=== PATIENT | female | born 1950 | race Caucasian/White ===

== ENCOUNTER 2017-09-03 08:42 | Inpatient (IN) | payer MEDICAID, MEDICARE ==
[2017-09-03] MEDS ORDERED: MAGNESIUM SULFATE/D5W 2 GM/200 ML RTUPB IV ONE (08:58)
[2017-09-03] MEDS ORDERED: IPRATROPIUM/ALBUTEROL 0.5-2.5 MG/3 ML AMPUL NEB ONE ×2 (08:58→09:06)
--- NOTE | 2017-09-03 08:58 | ER Document Report ---
ED Respiratory Problem - General Chief Complaint: Shortness Of Breath Stated Complaint: DIFFICULTY BREATHING Time Seen by Provider: 09/03/17 08:51 Notes: The patient is a 67-year-old female, past medical history asthma, COPD, current smoker, presents with 1 day of increasing shortness of breath and cough. Patient said that multiple family members had the flu last week and she had similar symptoms, so she thought she had the flu also. When she called EMS today, she was found to be 73% on room air. She does not wear oxygen at home. Patient was given 125 mg Solu-Medrol and DuoNeb with improvement of her respiratory status. She arrived on 4 L O2 and satting 92%. Patient denies chest pain, leg swelling, nausea, vomiting, back pain, rash, fevers, numbness or tingling. - Related Data Allergies/Adverse Reactions: No Known Allergies Allergy (Unverified 09/03/17 10:07) Past Medical History - General Information source: Patient - Social History Smoking Status: Current Every Day Smoker Family History: Reviewed & Not Pertinent Review of Systems - Review of Systems Notes: REVIEW OF SYSTEMS: CONSTITUTIONAL: -fevers, -chills EENT: -eye pain, -difficulty swallowing, -nasal congestion CARDIOVASCULAR: -chest pain, -syncope. RESPIRATORY: +cough, +SOB GASTROINTESTINAL: -abdominal pain, -nausea, -vomiting, -diarrhea GENITOURINARY: -dysuria, -hematuria MUSCULOSKELETAL: -back pain, -neck pain SKIN: -rash or skin lesions. HEMATOLOGIC: -easy bruising or bleeding. LYMPHATIC: -swollen, enlarged glands. NEUROLOGICAL: -altered mental status or loss of consciousness, -headache, - neurologic symptoms PSYCHIATRIC: -anxiety, -depression. ALL OTHER SYSTEMS REVIEWED AND NEGATIVE. Physical Exam - Vital signs Vitals: Resp 22 H 09/03/17 08:47 - Notes Notes: PHYSICAL EXAMINATION: GENERAL: Well-appearing, well-nourished and in no acute distress. HEAD: Atraumatic, normocephalic. EYES: Pupils equal round and reactive to light, extraocular movements intact, sclera anicteric, conjunctiva are normal. ENT: nares patent, oropharynx clear without exudates. Moist mucous membranes. NECK: Normal range of motion, supple without lymphadenopathy LUNGS: Mildly tachypneic. Speaking in full sentences. Mild end-expiratory wheezing. HEART: Regular rate and rhythm without murmurs ABDOMEN: Soft, nontender, normoactive bowel sounds. No guarding, no rebound. No masses appreciated. EXTREMITIES: Normal range of motion, no pitting or edema. No cyanosis. NEUROLOGICAL: Cranial nerves grossly intact. Normal speech. Normal sensory and motor exams. PSYCH: Normal mood, normal affect. SKIN: Warm, Dry, normal turgor, no rashes or lesions noted. Course - Re-evaluation Re-evalutation: Patient arrives mildly tachypneic, hypoxic to 73% on room air and 80% on 4 L nasal cannula with diffuse wheezing. She already received Solu-Medrol and a Duoneb by EMS prior to arrival. Patient provided 2 more duonebs and magnesium in the ER with improvement of her wheezing and respiratory status. She was placed on BiPAP with improvement of her oxygenation. Patient was attempted to be weaned off BiPAP, but she became hypoxic again. There are no signs of bacterial infection at this time. Treated her for viral bronchitis with steroids and Duoenbs. Her elevated lactate is most likely from her increased work of breathing on arrival. Her PMD is Dr. Hira Villalba. 09/03/17 12:[address] Solano and she has accepted patient as Inpatient to Tele. - Vital Signs Vital signs: Temp Pulse Resp BP Pulse Ox 98.3 F 25 H 118/53 L 93 09/03/17 09:01 09/03/17 11:21 09/03/17 09:06 09/03/17 11:21 - Laboratory Result Diagrams: 09/03/17 08:56 09/03/17 08:56 Laboratory results interpreted by me: 09/03/17 09/03/17 09/03/17 08:56 08:56 08:56 WBC 11.8 H RDW 14.6 H Carbon Dioxide 31 H Creatinine 0.49 L Glucose 127 H Lactic Acid 2.9 H - Diagnostic Test Radiology reviewed: Image reviewed, Reports reviewed Radiology results interpreted by me: CXR: NAD - EKG Interpretation by Me EKG shows normal: Sinus rhythm, [place], Intervals, QRS Complexes, ST-T Waves Rate: Normal When compared to previous EKG there are: Previous EKG unavailable Discharge - Discharge Clinical Impression: Respiratory failure with hypoxia Qualifiers: Chronicity: acute Qualified Code(s): J96.01 - Acute respiratory failure with hypoxia Condition: Stable Disposition: ADMITTED INPATIENT Admitting Provider: Hospitalist Earl Solano Unit Admitted: Telemetry Referrals: HIRA VILLALBA MD [Primary Care Provider] - Follow up as needed
[2017-09-03 09:11] LABS: ABSOLUTE BASOPHILS # (AUTO) 0.1 10^3/uL (0.0-0.2); ABSOLUTE LYMPHOCYTES (AUTO) 4.6 10^3/uL (0.5-4.7); ABSOLUTE NEUT (AUTO) 6.1 10^3/uL (1.7-8.2); BASOPHILS % (AUTO) 0.6 % (0-2); EOSINOPHILS % (AUTO) 0.1 % (0-6); HEMATOCRIT 45.4 % (36.0-47.0); HEMOGLOBIN 15.1 g/dL (12.0-15.5); LYMPHOCYTES % (AUTO) 39.2 % (13-45); MEAN CORPUSCULAR HGB CONC 33.2 g/dL (32.0-36.0); MEAN CORPUSCULAR VOLUME 96 fl (80-97); MONOCYTES % (AUTO) 8.2 % (3-13); PLATELET COUNT 200 10^3/uL (150-450); RED BLOOD COUNT 4.71 10^6/uL (3.72-5.28); RED CELL DISTRIBUTION WIDTH 14.6 % (11.5-14.0); SEGMENTED NEUTROPHILS % (AUTO) 51.9 % (42-78); TOTAL CELLS COUNTED % (AUTO) 100 %; WHITE BLOOD COUNT 11.8 10^3/uL (4.0-10.5)
[2017-09-03] MEDS: MAGNESIUM SULFATE/D5W 1 GM/100 ML RTUPB IV SCH ×2 (09:13→13:21)
[2017-09-03 09:25] LABS: VENOUS BLOOD BASE EXCESS 3.4 mmol/L; VENOUS BLOOD HCO3 30.7 mmol/L (20-32); VENOUS BLOOD PCO2 57.9 mmHg (35-63); VENOUS BLOOD PH 7.34 (7.30-7.42)
[2017-09-03 09:32] LABS: ALANINE AMINOTRANSFERASE 38 U/L (9-52); ALBUMIN 4.2 g/dL (3.5-5.0); ALKALINE PHOSPHATASE 91 U/L (38-126); ANION GAP 13 (5-19); ASPARTATE AMINO TRANSFERASE 34 U/L (14-36); BILIRUBIN,DIRECT 0.4 mg/dL (0.0-0.4); BILIRUBIN,TOTAL 0.5 mg/dL (0.2-1.3); BLOOD UREA NITROGEN 9 mg/dL (7-20); CALCIUM 9.1 mg/dL (8.4-10.2); CARBON DIOXIDE 31 mmol/L (22-30); CHLORIDE 101 mmol/L (98-107); CREATINE KINASE 44 U/L (30-135); GLUCOSE 127 mg/dL (75-110); POTASSIUM 3.6 mmol/L (3.6-5.0); SODIUM 144.5 mmol/L (137-145); TOTAL PROTEIN 7.8 g/dL (6.3-8.2)
[2017-09-03 09:44] LABS: NT PRO BNP 158 pg/mL (5-900)
[2017-09-03 09:45] LABS: TROPONIN I < 0.012 ng/mL
--- NOTE | 2017-09-03 09:48 | RADIOLOGY REPORT (SQ) ---
EXAM DESCRIPTION: CHEST SINGLE VIEW COMPLETED DATE/TIME: 09/03/2017 9:20 am REASON FOR STUDY: hypoxia COMPARISON: None. EXAM PARAMETERS: NUMBER OF VIEWS: One view. TECHNIQUE: Single frontal radiographic view of the chest acquired. RADIATION DOSE: NA LIMITATIONS: None. FINDINGS: LUNGS AND PLEURA: No opacities, masses or pneumothorax. No pleural effusion. MEDIASTINUM AND HILAR STRUCTURES: No masses. Contour normal. HEART AND VASCULAR STRUCTURES: Heart normal in size. Normal vasculature. BONES: No acute findings. HARDWARE: None in the chest. OTHER: No other significant finding. IMPRESSION: NO ACUTE RADIOGRAPHIC FINDING IN THE CHEST. TECHNICAL DOCUMENTATION: JOB ID: [id number] [employer]- All Rights Reserved
[2017-09-03 11:16] LABS: A TYPE INFLUENZA AG NEGATIVE (NEGATIVE); B INFLUENZA AG NEGATIVE (NEGATIVE)
[2017-09-03] MEDS ORDERED: ACETAMINOPHEN 325 MG TABLET PO PRN (12:31)
[2017-09-03] MEDS ORDERED: ONDANSETRON HCL INJ/PF 4 MG/2 ML SDV IV PRN (12:31)
[2017-09-03] MEDS ORDERED: DEXTROSE 50%-WATER 25 GM/50 ML DISP.SYRIN IV PRN ×2 (13:15)
[2017-09-03] MEDS ORDERED: DEXTROSE 40% GEL 15 GM TUBE PO PRN ×2 (13:15)
[2017-09-03] MEDS ORDERED: GLUCAGON,HUMAN RECOMB 1 MG INJ IM PRN (13:15)
[2017-09-03] MEDS: AZITHROMYCIN 250 MG TABLET PO SCH (13:59)
--- NOTE | 2017-09-03 13:59 | PDOC H&P ---
History of Present Illness Admission Date/PCP: September 03, 2017 SHABBIR VILLALBA MD Patient complains of: Shortness of breath worsening over the course of 5 days History of Present Illness: AFSHIN MCCURDY is a 67 year old female presents accompanied by multiple family members and states that she has been getting progressively short of breath over the span of 5 days. Patient has been having cough which is nonproductive. Patient also complains of having some chills. Shortness of breath was so severe that she had to call EMS. Upon arrival of EMS pulse ox was 73%. On arrival patient was still hypoxemic and required placement on BiPAP. She was medicated with IV Solu-Medrol and DuoNeb. Patient continues smoking 1 pack of cigarettes per day. Her father of lung cancer. In addition to her smoking there are some other family members that smoke as well.By the time of examining patient she reported that she was some better but was somewhat afraid of using the BiPAP. Our service was contacted by ED physician and prompted to admit for further management Past Medical History Cardiac Medical History: Reports: Hypertension Pulmonary Medical History: Reports: Asthma, Chronic Obstructive Pulmonary Disease (COPD) EENT Medical History: Reports: None Neurological Medical History: Reports: None Endocrine Medical History: Reports: Diabetes Mellitus Type 2 Renal/ Medical History: Reports: None Malignancy Medical History: Reports: None GI Medical History: Reports: Gastroesophageal Reflux Disease Musculoskeltal Medical History: Reports: Arthritis, Fibromyalgia Skin Medical History: Reports: None Psychiatric Medical History: Reports: Tobacco Dependency Traumatic Medical History: Reports: None Hematology: Reports: None Infectious Medical History: Reports: None Past Surgical History Past Surgical History: Reports: None Social History Smoking Status: Current Every Day Smoker Cigarettes Packs Per Day: 1 Frequency of Alcohol Use: None Hx Recreational Drug Use: No Drugs: None Hx Prescription Drug Abuse: No Family History Family History: DM, Hypertension, Malignancy Parental Family History Reviewed: Yes Children Family History Reviewed: Yes Sibling(s) Family History Reviewed.: Yes Medication/Allergy Home Medications: Albuterol Sulfate [Ventolin HFA MDI 18 GM] 2 puff IH Q4HP PRN 09/03/17 Alendronate Sodium [Fosamax 70 mg Tablet] 70 mg PO PINEDA@1000 09/03/17 Aspirin [Aspirin EC] 81 mg PO DAILY 09/03/17 Celecoxib [Celebrex 200 mg Capsule] 200 mg PO DAILY 09/03/17 Duloxetine HCl [Cymbalta] 30 mg PO DAILY 09/03/17 Esomeprazole Mag Trihydrate [Nexium] 40 mg PO DAILY 09/03/17 Furosemide [Lasix 40 mg Tablet] 40 mg PO QAM 09/03/17 Hydrocodone/Acetaminophen [Hydrocodon-Acetaminophen 5-325] 1 tab PO Q8HP PRN Krill/Om-3/Dha/Epa/Phospho/Ast [Megared [place]-3 Krill Oil Sfgl] 1 cap PO DAILY 09/03/17 Losartan Potassium [Cozaar 100 mg Tablet] 100 mg PO DAILY 09/03/17 Multivit-Min/Iron/Folic/Lutein [Centrum Silver Women Tablet] 1 tab PO DAILY Rosuvastatin Calcium [Crestor 10 mg Tablet] 10 mg PO QHS 09/03/17 Sitagliptin Phosphate [Januvia] 100 mg PO DAILY 09/03/17 Tolterodine Tartrate [Detrol La] 4 mg PO DAILY 09/03/17 Verapamil HCl [Verapamil ER] 240 mg PO DAILY 09/03/17 Allergies/Adverse Reactions: No Known Allergies Allergy (Unverified 09/03/17 10:07) Review of Systems Constitutional: PRESENT: chills Eyes: ABSENT: visual disturbances Ears: ABSENT: hearing changes Nose, Mouth, and Throat: ABSENT: headache(s), mouth pain, sore throat Cardiovascular: ABSENT: chest pain, edema, palpitations Respiratory: PRESENT: cough, dyspnea Gastrointestinal: ABSENT: abdominal pain, diarrhea, nausea, vomiting Genitourinary: ABSENT: dysuria, hematuria Musculoskeletal: PRESENT: back pain. ABSENT: deformity, joint swelling Integumentary: PRESENT: rash Neurological: ABSENT: dizziness, tingling, weakness Endocrine: ABSENT: heat intolerance, polydipsia, polyphagia Hematologic/Lymphatic: ABSENT: lymphadenopathy Allergic/Immunologic: ABSENT: seasonal rhinorrhea Physical Exam Vital Signs: Temp Pulse Resp BP Pulse Ox 98.3 F 25 H 118/53 L 93 09/03/17 09:01 09/03/17 11:21 09/03/17 09:06 09/03/17 11:21 General appearance: PRESENT: cooperative, mild distress, obese Head exam: PRESENT: atraumatic, normocephalic Eye exam: PRESENT: EOMI, PERRLA Ear exam: PRESENT: normal external ear exam Mouth exam: PRESENT: moist, neck supple Neck exam: PRESENT: full ROM. ABSENT: JVD, lymphadenopathy, tenderness Respiratory exam: PRESENT: decreased breath sounds, tachypnea. ABSENT: crackles , wheezes Cardiovascular exam: PRESENT: RRR. ABSENT: diastolic murmur, systolic murmur Vascular exam: PRESENT: normal capillary refill GI/Abdominal exam: PRESENT: normal bowel sounds, soft. ABSENT: guarding, tenderness Rectal exam: PRESENT: deferred Extremities exam: PRESENT: full ROM. ABSENT: joint swelling, pedal edema Musculoskeletal exam: PRESENT: ambulatory Neurological exam: PRESENT: alert, awake, oriented to person, oriented to place , oriented to time, CN II-XII grossly intact Psychiatric exam: PRESENT: appropriate affect, normal mood Skin exam: PRESENT: intact, normal color Results Laboratory Results: 09/03/17 08:56 09/03/17 08:56 09/03/17 09/03/17 09/03/17 08:56 08:56 08:56 WBC 11.8 H RBC 4.71 Hgb 15.1 Hct 45.4 MCV 96 MCH 32.0 MCHC 33.2 RDW 14.6 H Plt Count 200 Seg Neutrophils % 51.9 Lymphocytes % 39.2 Monocytes % 8.2 Eosinophils % 0.1 Basophils % 0.6 Absolute Neutrophils 6.1 Absolute Lymphocytes 4.6 Absolute Monocytes 1.0 Absolute Eosinophils 0.0 Absolute Basophils 0.1 VBG pH VBG pCO2 VBG HCO3 VBG Base Excess Sodium 144.5 Potassium 3.6 Chloride 101 Carbon Dioxide 31 H Anion Gap 13 BUN 9 Creatinine 0.49 L Est GFR ( Amer) > 60 Est GFR (Non-Af Amer) > 60 Glucose 127 H Lactic Acid 2.9 H Calcium 9.1 Total Bilirubin 0.5 AST 34 ALT 38 Alkaline Phosphatase 91 Total Protein 7.8 Albumin 4.2 09/03/17 08:56 WBC RBC Hgb Hct MCV MCH MCHC RDW Plt Count Seg Neutrophils % Lymphocytes % Monocytes % Eosinophils % Basophils % Absolute Neutrophils Absolute Lymphocytes Absolute Monocytes Absolute Eosinophils Absolute Basophils VBG pH 7.34 VBG pCO2 57.9 VBG HCO3 30.7 VBG Base Excess 3.4 Sodium Potassium Chloride Carbon Dioxide Anion Gap BUN Creatinine Est GFR ( Amer) Est GFR (Non-Af Amer) Glucose Lactic Acid Calcium Total Bilirubin AST ALT Alkaline Phosphatase Total Protein Albumin 09/03/17 09/03/17 08:56 08:56 Creatine Kinase 44 Troponin I < 0.012 NT-Pro-B Natriuret Pep 158 Impressions: Chest X-Ray 09/03/17 08:51 IMPRESSION: NO ACUTE RADIOGRAPHIC FINDING IN THE CHEST. Assessment & Plan - Diagnosis (1) Acute and chronic respiratory failure Qualifiers: Respiratory failure complication: hypoxia and hypercapnia Qualified Code(s) : J96.21 - Acute and chronic respiratory failure with hypoxia; J96.22 - Acute and chronic respiratory failure with hypercapnia; J96.22 - Acute and chronic respiratory failure with hypercapnia; J96.22 - Acute and chronic respiratory failure with hypercapnia Is this a current diagnosis for this admission?: Yes Plan: Continue BiPAP. Will add low-dose Xanax as needed. Patient and family had been made aware that these medication can depress respiration therefore will have to use it judiciously (2) COPD exacerbation Is this a current diagnosis for this admission?: Yes Plan: To be placed on DuoNeb's, Mucinex, IV steroid and Zithromax (3) Lactic acidosis Is this a current diagnosis for this admission?: Yes Plan: May relate to respiratory failure and hypoperfusion and patient does not feel criteria for sepsis (4) Tobacco abuse Is this a current diagnosis for this admission?: Yes Plan: Patient has been advised to quit since at risk for myocardial infarction, stroke , circulatory problems and lung cancer. Will place patient on nicotine patch (5) Chronic pain syndrome Is this a current diagnosis for this admission?: Yes Plan: Patient suffers from arthritis and fibromyalgia. She is on long-standing hydrocodone. Will continue outpatient pain management regimen (6) Opioid dependence in controlled environment Is this a current diagnosis for this admission?: Yes Plan: Will continue with outpatient regimen (7) Diabetes Qualifiers: Diabetes mellitus type: type 2 Diabetes mellitus complication status: with unspecified complications Diabetes mellitus ferry terminal agent insulin use: without ferry terminal agent use Qualified Code(s): E11.8 - Type 2 diabetes mellitus with unspecified complications Is this a current diagnosis for this admission?: Yes Plan: For now to place patient on Humalog sliding scale and bedside glucose before meals and at bedtime - Time Time Spent: 50 to 70 Minutes Smoking Cessation Education: 3 to 10 minutes Medications reviewed and adjusted accordingly: Yes Anticipated discharge: Home Within: within 72 hours - Inpatient Certification Based on my medical assessment, after consideration of the patient's comorbidities, presenting symptoms, or acuity I expect that the services needed warrant INPATIENT care.: Yes I certify that my determination is in accordance with my understanding of Medicare's requirements for reasonable and necessary INPATIENT services [42 CFR 412.3e].: Yes Medical Necessity: Need Close Monitoring Due to Risk of Patient Decompensation, Need For Continuous Telemetry Monitoring, Need for Nebulizer Therapy and Monitoring of Response
[2017-09-03] MEDS: NICOTINE 21 MG/24 HR PATCH.TD24 TD SCH (14:00)
[2017-09-03] MEDS ORDERED: GUAIFENESIN 600 MG TABLET.SA PO ONE (14:00)
[2017-09-03] MEDS: IPRATROPIUM/ALBUTEROL 0.5-2.5 MG/3 ML AMPUL NEB SCH ×2 (14:02→20:44)
[2017-09-03] MEDS: INSULIN LISPRO 100 UNIT/ML 3 ML VIAL SUBCUT PRN (17:18)
--- NOTE | 2017-09-03 17:18 | EKG REPORT ---
SEVERITY:- NORMAL ECG - SINUS RHYTHM : Confirmed by: Francie Sandhu 03-Sep-2017 17:17:30
[2017-09-03] MEDS: METHYLPREDNISOLONE INJ 40 MG/1 ML SDV IV SCH (18:47)
[2017-09-03] MEDS: ATORVASTATIN CALCIUM 20 MG TABLET PO SCH (23:29)
[2017-09-03] MEDS: GUAIFENESIN 600 MG TABLET.SA PO SCH (23:29)
[2017-09-03] MEDS: TOLTERODINE TARTRATE 1 MG TABLET PO SCH (23:30)
[2017-09-03] MEDS: OXYCODONE-ACETAMINOPHEN 5-325 MG TABLET PO PRN (23:31)
[2017-09-03] MEDS: ZOLPIDEM TARTRATE 5 MG TABLET PO PRN (23:32)
[2017-09-04] MEDS: ALPRAZOLAM 0.25 MG TABLET PO PRN ×2 (02:14→21:48)
[2017-09-04] MEDS: METHYLPREDNISOLONE INJ 40 MG/1 ML SDV IV SCH ×3 (02:14→17:35)
[2017-09-04 05:35] LABS: ANION GAP 9 (5-19); BLOOD UREA NITROGEN 10 mg/dL (7-20); CALCIUM 9.1 mg/dL (8.4-10.2); CARBON DIOXIDE 32 mmol/L (22-30); CHLORIDE 104 mmol/L (98-107); GLUCOSE 149 mg/dL (75-110); MAGNESIUM 2.3 mg/dL (1.6-2.3); POTASSIUM 3.9 mmol/L (3.6-5.0); SODIUM 145.3 mmol/L (137-145)
[2017-09-04 05:48] LABS: ABSOLUTE LYMPHOCYTES (AUTO) 1.4 10^3/uL (0.5-4.7); ABSOLUTE MONOCYTES (AUTO) 0.8 10^3/uL (0.1-1.4); ABSOLUTE NEUT (AUTO) 4.8 10^3/uL (1.7-8.2); BASOPHILS % (AUTO) 0.2 % (0-2); HEMATOCRIT 42.1 % (36.0-47.0); HEMOGLOBIN 14.2 g/dL (12.0-15.5); LYMPHOCYTES % (AUTO) 20.3 % (13-45); MEAN CORPUSCULAR HEMOGLOBIN 32.2 pg (27.0-33.4); MEAN CORPUSCULAR HGB CONC 33.8 g/dL (32.0-36.0); MEAN CORPUSCULAR VOLUME 95 fl (80-97); PLATELET COUNT 200 10^3/uL (150-450); RED BLOOD COUNT 4.42 10^6/uL (3.72-5.28); RED CELL DISTRIBUTION WIDTH 14.7 % (11.5-14.0); SEGMENTED NEUTROPHILS % (AUTO) 68.5 % (42-78); TOTAL CELLS COUNTED % (AUTO) 100 %
[2017-09-04] MEDS: LANSOPRAZOLE 30 MG TAB.RAP.DR PO SCH (05:58)
[2017-09-04] MEDS: OXYCODONE-ACETAMINOPHEN 5-325 MG TABLET PO PRN ×2 (05:59→21:48)
[2017-09-04] MEDS: IPRATROPIUM/ALBUTEROL 0.5-2.5 MG/3 ML AMPUL NEB SCH ×3 (07:51→20:55)
[2017-09-04] MEDS ORDERED: (PENDING PHARMACY ID) (Esomeprazole Mag Trihydrate [Nexium] 40 MG) PO SCH (10:00)
[2017-09-04] MEDS: MULTIVITAMIN TABLET PO SCH (10:02)
[2017-09-04] MEDS: DULOXETINE HCL 30 MG CAPSULE.DR PO SCH (10:02)
[2017-09-04] MEDS: FUROSEMIDE 40 MG TABLET PO SCH (10:02)
[2017-09-04] MEDS: GUAIFENESIN 600 MG TABLET.SA PO SCH ×2 (10:03→21:48)
[2017-09-04] MEDS: VERAPAMIL HCL 240 MG TABLET.SA PO SCH (10:03)
[2017-09-04] MEDS: TOLTERODINE TARTRATE 1 MG TABLET PO SCH ×2 (10:04→21:48)
[2017-09-04] MEDS: LOSARTAN POTASSIUM 50 MG TABLET PO SCH (10:04)
[2017-09-04] MEDS: ASPIRIN 81 MG TABLET, ENT COATED PO SCH (10:05)
[2017-09-04] MEDS: ENOXAPARIN SODIUM INJ 40 MG/0.4 ML DISP.SYRIN SUBCUT SCH (10:06)
[2017-09-04] MEDS: DOCUSATE SODIUM 100 MG CAPSULE PO SCH (10:16)
[2017-09-04] MEDS: INSULIN LISPRO 100 UNIT/ML 3 ML VIAL SUBCUT PRN (12:25)
[2017-09-04] MEDS: AZITHROMYCIN 250 MG TABLET PO SCH (13:54)
[2017-09-04] MEDS: NICOTINE 21 MG/24 HR PATCH.TD24 TD SCH (13:55)
--- NOTE | 2017-09-04 15:10 | PDOC PROGRESS REPORT ---
Subjective Progress Note for:: 09/04/17 Subjective:: Patient refers that is some better. She started to cough phlegm Review of systems All organ systems evaluated and negative except as in subjective All laboratories and significant diagnostics have been reviewed Reason For Visit: ACUTE ON CHRONIC RESPIRATORY FAILURE,AECOPD Physical Exam Vital Signs: Temp Pulse Resp BP Pulse Ox 98.7 F 93 20 142/74 H 93 09/03/17 23:00 09/04/17 02:00 09/03/17 23:00 09/03/17 23:00 09/03/17 23:00 Intake & Output 09/03/17 09/04/17 09/05/17 06:59 06:59 06:59 Intake Total 100 Balance 100 Weight 94.347 kg General appearance: PRESENT: mild distress, obese Head exam: PRESENT: atraumatic, normocephalic Eye exam: PRESENT: EOMI, nystagmus, PERRLA Ear exam: PRESENT: normal external ear exam Mouth exam: PRESENT: moist, neck supple Neck exam: PRESENT: full ROM. ABSENT: JVD, tenderness Respiratory exam: PRESENT: crackles, decreased breath sounds, wheezes Cardiovascular exam: PRESENT: RRR. ABSENT: diastolic murmur, systolic murmur Vascular exam: PRESENT: normal capillary refill GI/Abdominal exam: PRESENT: normal bowel sounds, soft. ABSENT: tenderness Extremities exam: PRESENT: full ROM. ABSENT: joint swelling, pedal edema Neurological exam: PRESENT: alert, awake, oriented to person, oriented to place , oriented to time Psychiatric exam: PRESENT: appropriate affect, normal mood Skin exam: PRESENT: intact, normal color Results Laboratory Results: 09/04/17 04:15 09/04/17 04:15 09/03/17 09/04/17 09/04/17 13:22 04:15 04:15 WBC 7.0 RBC 4.42 Hgb 14.2 Hct 42.1 MCV 95 MCH 32.2 MCHC 33.8 RDW 14.7 H Plt Count 200 Seg Neutrophils % 68.5 Lymphocytes % 20.3 Monocytes % 11.0 Eosinophils % 0.0 Basophils % 0.2 Absolute Neutrophils 4.8 Absolute Lymphocytes 1.4 Absolute Monocytes 0.8 Absolute Eosinophils 0.0 Absolute Basophils 0.0 Sodium 145.3 H Potassium 3.9 Chloride 104 Carbon Dioxide 32 H Anion Gap 9 BUN 10 Creatinine 0.46 L Est GFR ( Amer) > 60 Est GFR (Non-Af Amer) > 60 Glucose 149 H Lactic Acid 1.9 Calcium 9.1 Magnesium 2.3 09/03/17 09/03/17 13:22 18:56 Troponin I < 0.012 < 0.012 Impressions: Chest X-Ray 09/03/17 08:51 IMPRESSION: NO ACUTE RADIOGRAPHIC FINDING IN THE CHEST. Assessment & Plan - Diagnosis (1) Acute and chronic respiratory failure Qualifiers: Respiratory failure complication: hypoxia and hypercapnia Qualified Code(s) : J96.21 - Acute and chronic respiratory failure with hypoxia; J96.22 - Acute and chronic respiratory failure with hypercapnia; J96.22 - Acute and chronic respiratory failure with hypercapnia; J96.22 - Acute and chronic respiratory failure with hypercapnia Is this a current diagnosis for this admission?: Yes Plan: Continue BiPAP prn and oxygen supplementation (2) COPD exacerbation Is this a current diagnosis for this admission?: Yes Plan: Cotninue DuoNeb's, Mucinex, IV steroid, Zithromax and add mucomyst (3) Lactic acidosis Is this a current diagnosis for this admission?: Yes Plan: May relate to respiratory failure and hypoperfusion and patient does not feel criteria for sepsis (4) Tobacco abuse Is this a current diagnosis for this admission?: Yes Plan: Patient has been advised to quit since at risk for myocardial infarction, stroke , circulatory problems and lung cancer. Continue nicotine patch (5) Chronic pain syndrome Is this a current diagnosis for this admission?: Yes Plan: Patient suffers from arthritis and fibromyalgia. She is on long-standing hydrocodone. Will continue outpatient pain management regimen (6) Opioid dependence in controlled environment Is this a current diagnosis for this admission?: Yes Plan: Will continue with outpatient regimen (7) Diabetes Qualifiers: Diabetes mellitus type: type 2 Diabetes mellitus complication status: with unspecified complications Diabetes mellitus group home insulin use: without terminal supervisor use Qualified Code(s): E11.8 - Type 2 diabetes mellitus with unspecified complications Is this a current diagnosis for this admission?: Yes Plan: Continue Humalog sliding scale and bedside glucose before meals and at bedtime (8) HTN (hypertension) Qualifiers: Hypertension type: essential hypertension Qualified Code(s): I10 - Essential (primary) hypertension Is this a current diagnosis for this admission?: Yes Plan: Continue outpatient regimen - Time Time Spent with patient: 15-24 minutes Medications reviewed and adjusted accordingly: Yes Anticipated discharge: Home Within: within 72 hours - Inpatient Certification Based on my medical assessment, after consideration of the patient's comorbidities, presenting symptoms, or acuity I expect that the services needed warrant INPATIENT care.: Yes I certify that my determination is in accordance with my understanding of Medicare's requirements for reasonable and necessary INPATIENT services [42 CFR 412.3e].: Yes Medical Necessity: Need Close Monitoring Due to Risk of Patient Decompensation, Need for Nebulizer Therapy and Monitoring of Response, Risk of Complication if Not Cared For in Hospital
[2017-09-04] MEDS: ACETYLCYSTEINE 10% NEB 400 MG/4 ML VIAL NEB SCH (21:16)
[2017-09-04] MEDS: ATORVASTATIN CALCIUM 20 MG TABLET PO SCH (21:49)
[2017-09-05] MEDS: ALBUTEROL SULFATE 0.083% NEB 2.5 MG/3 ML AMPUL NEB PRN (02:05)
[2017-09-05] MEDS: ACETYLCYSTEINE 10% NEB 400 MG/4 ML VIAL NEB SCH ×4 (02:05→19:52)
[2017-09-05] MEDS: ZOLPIDEM TARTRATE 5 MG TABLET PO PRN ×2 (02:22→22:57)
[2017-09-05] MEDS: METHYLPREDNISOLONE INJ 40 MG/1 ML SDV IV SCH ×2 (02:22→18:19)
[2017-09-05] MEDS: OXYCODONE-ACETAMINOPHEN 5-325 MG TABLET PO PRN ×2 (03:28→20:36)
[2017-09-05] MEDS: ALPRAZOLAM 0.25 MG TABLET PO PRN ×2 (06:41→20:35)
[2017-09-05] MEDS: LANSOPRAZOLE 30 MG TAB.RAP.DR PO SCH (06:41)
[2017-09-05] MEDS: IPRATROPIUM/ALBUTEROL 0.5-2.5 MG/3 ML AMPUL NEB SCH ×3 (07:51→19:52)
[2017-09-05] MEDS: VERAPAMIL HCL 240 MG TABLET.SA PO SCH (11:16)
[2017-09-05] MEDS: DULOXETINE HCL 30 MG CAPSULE.DR PO SCH (11:16)
[2017-09-05] MEDS: ASPIRIN 81 MG TABLET, ENT COATED PO SCH (11:16)
[2017-09-05] MEDS: TOLTERODINE TARTRATE 1 MG TABLET PO SCH ×2 (11:17→20:35)
[2017-09-05] MEDS: LOSARTAN POTASSIUM 50 MG TABLET PO SCH (11:17)
[2017-09-05] MEDS: FUROSEMIDE 40 MG TABLET PO SCH (11:17)
[2017-09-05] MEDS: MULTIVITAMIN TABLET PO SCH (11:17)
[2017-09-05] MEDS: GUAIFENESIN 600 MG TABLET.SA PO SCH ×2 (11:18→20:36)
[2017-09-05] MEDS: ENOXAPARIN SODIUM INJ 40 MG/0.4 ML DISP.SYRIN SUBCUT SCH (11:18)
[2017-09-05] MEDS: DOCUSATE SODIUM 100 MG CAPSULE PO SCH (11:24)
[2017-09-05] MEDS: NICOTINE 21 MG/24 HR PATCH.TD24 TD SCH (13:46)
[2017-09-05] MEDS: AZITHROMYCIN 250 MG TABLET PO SCH (13:46)
--- NOTE | 2017-09-05 16:02 | PDOC PROGRESS REPORT ---
Subjective Progress Note for:: 09/05/17 Subjective:: Patient is doing a lot better She has no chest pain minimal shortness of breath She did ambulate to the bathroom She has no fever no chills Reason For Visit: ACUTE ON CHRONIC RESPIRATORY FAILURE,AECOPD Physical Exam Vital Signs: Temp Pulse Resp BP Pulse Ox 97.4 F 90 16 135/72 H 91 L 09/05/17 12:01 09/05/17 13:57 09/05/17 13:57 09/05/17 12:01 09/05/17 12:01 Intake & Output 09/04/17 09/05/17 09/06/17 00:59 00:59 00:59 Intake Total 100 530 0 Output Total 0 Balance 100 530 0 Weight 94.347 kg 95.6 kg General appearance: PRESENT: no acute distress, well-developed, well-nourished Head exam: PRESENT: atraumatic, normocephalic Eye exam: PRESENT: conjunctiva pink, EOMI, PERRLA. ABSENT: scleral icterus Neck exam: ABSENT: carotid bruit, JVD, lymphadenopathy, thyromegaly Respiratory exam: PRESENT: decreased breath sounds, wheezes. ABSENT: accessory muscle use Cardiovascular exam: PRESENT: RRR. ABSENT: diastolic murmur, rubs, systolic murmur Pulses: PRESENT: normal dorsalis pedis pul GI/Abdominal exam: PRESENT: normal bowel sounds, soft. ABSENT: distended, guarding, mass, organolmegaly, rebound, tenderness Extremities exam: PRESENT: full ROM. ABSENT: calf tenderness, clubbing, pedal edema Neurological exam: PRESENT: alert, awake, oriented to person, oriented to place , oriented to time, oriented to situation, CN II-XII grossly intact. ABSENT: motor sensory deficit Results Laboratory Results: 09/04/17 04:15 09/04/17 04:15 09/05/17 04:47 Lactic Acid 0.8 09/03/17 09/03/17 13:22 18:56 Troponin I < 0.012 < 0.012 Impressions: Chest X-Ray 09/03/17 08:51 IMPRESSION: NO ACUTE RADIOGRAPHIC FINDING IN THE CHEST. Assessment & Plan - Diagnosis (1) Acute and chronic respiratory failure Qualifiers: Respiratory failure complication: hypoxia and hypercapnia Qualified Code(s) : J96.21 - Acute and chronic respiratory failure with hypoxia; J96.22 - Acute and chronic respiratory failure with hypercapnia; J96.22 - Acute and chronic respiratory failure with hypercapnia; J96.22 - Acute and chronic respiratory failure with hypercapnia Is this a current diagnosis for this admission?: Yes (2) COPD exacerbation Is this a current diagnosis for this admission?: Yes (3) Chronic pain syndrome Is this a current diagnosis for this admission?: Yes (4) Diabetes Qualifiers: Diabetes mellitus type: type 2 Diabetes mellitus complication status: with unspecified complications Diabetes mellitus termite control service representative insulin use: without halfway use Qualified Code(s): E11.8 - Type 2 diabetes mellitus with unspecified complications Is this a current diagnosis for this admission?: Yes (5) HTN (hypertension) Qualifiers: Hypertension type: essential hypertension Qualified Code(s): I10 - Essential (primary) hypertension Is this a current diagnosis for this admission?: Yes (6) Opioid dependence in controlled environment Is this a current diagnosis for this admission?: Yes (7) Tobacco abuse Is this a current diagnosis for this admission?: Yes - Time Time Spent with patient: Patient's condition has improved greatly Oxygenation is improving She is chronically O2 dependent at home We will continue this present management Physical therapy evaluation Patient may be discharged tomorrow if she continues to improve Time Spent with patient: 25-34 minutes
[2017-09-05] MEDS: ATORVASTATIN CALCIUM 20 MG TABLET PO SCH (20:35)
[2017-09-06] MEDS: ACETYLCYSTEINE 10% NEB 400 MG/4 ML VIAL NEB SCH ×4 (01:31→19:35)
[2017-09-06] MEDS: ALBUTEROL SULFATE 0.083% NEB 2.5 MG/3 ML AMPUL NEB PRN (01:31)
[2017-09-06] MEDS: OXYCODONE-ACETAMINOPHEN 5-325 MG TABLET PO PRN (02:37)
[2017-09-06] MEDS: METHYLPREDNISOLONE INJ 40 MG/1 ML SDV IV SCH (06:28)
[2017-09-06] MEDS: LANSOPRAZOLE 30 MG TAB.RAP.DR PO SCH (06:29)
[2017-09-06] MEDS: IPRATROPIUM/ALBUTEROL 0.5-2.5 MG/3 ML AMPUL NEB SCH ×3 (08:18→19:35)
[2017-09-06] MEDS: MULTIVITAMIN TABLET PO SCH (09:28)
[2017-09-06] MEDS: DULOXETINE HCL 30 MG CAPSULE.DR PO SCH (09:28)
[2017-09-06] MEDS: ASPIRIN 81 MG TABLET, ENT COATED PO SCH (09:28)
[2017-09-06] MEDS: VERAPAMIL HCL 240 MG TABLET.SA PO SCH (09:28)
[2017-09-06] MEDS: GUAIFENESIN 600 MG TABLET.SA PO SCH ×2 (09:29→21:37)
[2017-09-06] MEDS: LOSARTAN POTASSIUM 50 MG TABLET PO SCH (09:29)
[2017-09-06] MEDS: FUROSEMIDE 40 MG TABLET PO SCH (09:29)
[2017-09-06] MEDS: TOLTERODINE TARTRATE 1 MG TABLET PO SCH ×2 (09:29→21:37)
[2017-09-06] MEDS: ENOXAPARIN SODIUM INJ 40 MG/0.4 ML DISP.SYRIN SUBCUT SCH (09:30)
[2017-09-06] MEDS: DOCUSATE SODIUM 100 MG CAPSULE PO SCH (09:36)
--- NOTE | 2017-09-06 13:02 | PDOC PROGRESS REPORT ---
Subjective Progress Note for:: 09/06/17 Subjective:: Patient is still quite short of breath and has continued hypoxemia with high O2 requirements On 5 L nasal cannula patient's O2 sat is 90 ; she has no chest pain no fever no chills Reason For Visit: ACUTE ON CHRONIC RESPIRATORY FAILURE,AECOPD Physical Exam Vital Signs: Temp Pulse Resp BP Pulse Ox 97.5 F 87 19 120/69 93 09/06/17 12:05 09/06/17 12:05 09/06/17 12:05 09/06/17 12:05 09/06/17 12:05 Intake & Output 09/05/17 09/06/17 09/07/17 00:59 00:59 00:59 Intake Total 530 435 10 Output Total 0 Balance 530 435 10 Weight 91.3 kg General appearance: PRESENT: no acute distress Head exam: PRESENT: atraumatic, normocephalic Eye exam: PRESENT: conjunctiva pink, EOMI, PERRLA. ABSENT: scleral icterus Neck exam: ABSENT: carotid bruit, JVD, lymphadenopathy, thyromegaly Respiratory exam: PRESENT: decreased breath sounds, wheezes. ABSENT: accessory muscle use, prolonged expiratory phas Cardiovascular exam: PRESENT: RRR. ABSENT: diastolic murmur, rubs, systolic murmur GI/Abdominal exam: PRESENT: normal bowel sounds, soft. ABSENT: distended, guarding, mass, organolmegaly, rebound, tenderness Extremities exam: PRESENT: full ROM. ABSENT: calf tenderness, clubbing, pedal edema Neurological exam: PRESENT: alert, awake, oriented to person, oriented to place , oriented to time, oriented to situation, CN II-XII grossly intact. ABSENT: motor sensory deficit Results Laboratory Results: 09/04/17 04:15 09/04/17 04:15 09/03/17 09/03/17 13:22 18:56 Troponin I < 0.012 < 0.012 Impressions: Chest X-Ray 09/03/17 08:51 IMPRESSION: NO ACUTE RADIOGRAPHIC FINDING IN THE CHEST. Assessment & Plan - Diagnosis (1) Acute and chronic respiratory failure Qualifiers: Respiratory failure complication: hypoxia and hypercapnia Qualified Code(s) : J96.21 - Acute and chronic respiratory failure with hypoxia; J96.22 - Acute and chronic respiratory failure with hypercapnia; J96.22 - Acute and chronic respiratory failure with hypercapnia; J96.22 - Acute and chronic respiratory failure with hypercapnia Is this a current diagnosis for this admission?: Yes Plan: Acute on chronic respiratory failure with hypoxemia and hypercapnia Patient has profound hypoxemia; no infiltrate on the initial chest x-ray We will perform a CTA of the chest to exclude PE (2) COPD exacerbation Is this a current diagnosis for this admission?: Yes Plan: Continue patient's present management Increase steroids (3) Chronic pain syndrome Is this a current diagnosis for this admission?: Yes (4) Diabetes Qualifiers: Diabetes mellitus type: type 2 Diabetes mellitus complication status: with unspecified complications Diabetes mellitus jail insulin use: without jail use Qualified Code(s): E11.8 - Type 2 diabetes mellitus with unspecified complications Is this a current diagnosis for this admission?: Yes Plan: Continue present management (5) HTN (hypertension) Qualifiers: Hypertension type: essential hypertension Qualified Code(s): I10 - Essential (primary) hypertension Is this a current diagnosis for this admission?: Yes Plan: Controlled continue present management (6) Opioid dependence in controlled environment Is this a current diagnosis for this admission?: Yes (7) Tobacco abuse Is this a current diagnosis for this admission?: Yes - Time Time Spent with patient: We will keep the patient in the hospital for another 2-3 days hoping that the O2 requirements will improve CTA of the chest to exclude PE today Time Spent with patient: 25-34 minutes
[2017-09-06] MEDS ORDERED: BUDESONIDE NEB 0.5 MG/2 ML AMPUL NEB ONE (13:30)
[2017-09-06] MEDS: NICOTINE 21 MG/24 HR PATCH.TD24 TD SCH (14:24)
[2017-09-06] MEDS: AZITHROMYCIN 250 MG TABLET PO SCH (14:25)
[2017-09-06] MEDS: METHYLPREDNISOLONE INJ 125 MG/2 ML SDV IV SCH (17:43)
[2017-09-06] MEDS: BUDESONIDE NEB 0.5 MG/2 ML AMPUL NEB SCH (19:35)
[2017-09-06] MEDS: ATORVASTATIN CALCIUM 20 MG TABLET PO SCH (21:37)
[2017-09-06] MEDS: INSULIN LISPRO 100 UNIT/ML 3 ML VIAL SUBCUT PRN (21:38)
[2017-09-06] MEDS ORDERED: MAG HYDROX/AL HYDROX/SIMETH SUSP 30 ML UDCUP ONE (22:02)
[2017-09-06] MEDS ORDERED: MAG HYDROX/AL HYDROX/SIMETH SUSP 30 ML UDCUP PO PRN (22:21)
[2017-09-07] MEDS: ACETYLCYSTEINE 10% NEB 400 MG/4 ML VIAL NEB SCH ×4 (01:49→19:41)
[2017-09-07] MEDS: ALBUTEROL SULFATE 0.083% NEB 2.5 MG/3 ML AMPUL NEB PRN (01:50)
[2017-09-07] MEDS: LANSOPRAZOLE 30 MG TAB.RAP.DR PO SCH (06:06)
[2017-09-07] MEDS: METHYLPREDNISOLONE INJ 125 MG/2 ML SDV IV SCH ×2 (06:06→18:04)
[2017-09-07] MEDS: IPRATROPIUM/ALBUTEROL 0.5-2.5 MG/3 ML AMPUL NEB SCH ×3 (08:46→19:41)
[2017-09-07] MEDS: BUDESONIDE NEB 0.5 MG/2 ML AMPUL NEB SCH ×2 (08:47→19:41)
[2017-09-07] MEDS: TOLTERODINE TARTRATE 1 MG TABLET PO SCH ×2 (10:44→22:28)
[2017-09-07] MEDS: DOCUSATE SODIUM 100 MG CAPSULE PO SCH (10:44)
[2017-09-07] MEDS: MULTIVITAMIN TABLET PO SCH (10:44)
[2017-09-07] MEDS: ASPIRIN 81 MG TABLET, ENT COATED PO SCH (10:45)
[2017-09-07] MEDS: VERAPAMIL HCL 240 MG TABLET.SA PO SCH (10:45)
[2017-09-07] MEDS: FUROSEMIDE 40 MG TABLET PO SCH (10:45)
[2017-09-07] MEDS: ENOXAPARIN SODIUM INJ 40 MG/0.4 ML DISP.SYRIN SUBCUT SCH (10:46)
[2017-09-07] MEDS: GUAIFENESIN 600 MG TABLET.SA PO SCH ×2 (10:46→22:29)
[2017-09-07] MEDS: LOSARTAN POTASSIUM 50 MG TABLET PO SCH (10:48)
[2017-09-07] MEDS: OXYCODONE-ACETAMINOPHEN 5-325 MG TABLET PO PRN ×2 (10:49→18:06)
[2017-09-07] MEDS: DULOXETINE HCL 30 MG CAPSULE.DR PO SCH (10:49)
[2017-09-07] MEDS: ALPRAZOLAM 0.25 MG TABLET PO PRN (12:07)
[2017-09-07] MEDS ORDERED: LORAZEPAM 1 MG TABLET PO ONE (12:30)
[2017-09-07] MEDS: AZITHROMYCIN 250 MG TABLET PO SCH (13:16)
[2017-09-07] MEDS: NICOTINE 21 MG/24 HR PATCH.TD24 TD SCH (13:17)
--- NOTE | 2017-09-07 15:41 | RADIOLOGY REPORT (SQ) ---
EXAM DESCRIPTION: CTA CHEST COMPLETED DATE/TIME: 09/07/2017 3:11 pm REASON FOR STUDY: severe hypoxemia COMPARISON: None. TECHNIQUE: CT scan of the chest performed using helical scanning technique with dynamic intravenous contrast injection. Images reviewed with lung, soft tissue and bone windows. Reconstructed coronal and sagittal MPR images reviewed. Additional 3 dimensional post-processing performed to develop Maximal Intensity Projection images (UT P). All images stored on PACS. All CT scanners at this facility use dose modulation, iterative reconstruction, and/or weight based d osing when appropriate to reduce radiation dose to as low as reasonably achievable (ALARA). [facility]: Dose Right [facility]: CareDose [facility]: Dose Right [facility]: Teradose 4D [facility]: 7 Cups of Tea CONTRAST TYPE AND DOSE: contrast/concentration: Isovue 370.00 mg/ml; Total Contrast Delivered: 71.0 ml; Total Saline Delivered: 98.0 ml Contrast bolus optimized for the pulmonary arteries. Not diagnostic for the aorta. RENAL FUNCTION: GFR > 60. RADIATION DOSE: CT Rad equipment meets quality standard of care and radiation dose reduction techniq ues were employed. CTDIvol: 9.4 - 15.5 mGy. DLP: 567 mGy-cm. . LIMITATIONS: None. FINDINGS: LUNGS AND PLEURA: Centrilobular and paraseptal emphysema. Subsegmental dependent airspace disease in the lower lobes. Coalescing nodule left lower lobe measuring about 15 mm. No effusions. AORTA AND GREAT VESSELS: No aneurysm. Contrast bolus not optimized for the aorta. HEART: No pericardial effusion. No significant coronary artery calcifications. PULMONARY ARTERIES: No emboli visualized in the main pulmonary arteries or the segmental branches. HILAR AND MEDIASTINAL STRUCTURES: No identified masses or abnormal nodes. HARDWARE: None in the chest. UPPER ABDOMEN: Scrotal hernia. THYROID AND OTHER SOFT TISSUES: No masses. No adenopathy. BONES: No acute or significant finding. 3D MIPS: Confirm above findings. OTHER: No other significant finding. IMPRESSION: 1. No PE. 2. COPD. Atelectasis or developing pneumonia in the lower lobes. COMMENT: Quality ID # [id number]: Final reports with documentation of one or more dose reduction techniques (e.g., Automated exposure control, adjustment of the mA and/or kV according to patient size, use of iterative reconstruction technique) TECHNICAL DOCUMENTATION: JOB ID: [id number] All Rights Reserved
[2017-09-07] MEDS ORDERED: VANCOMYCIN HCL 0 MG in DEXTROSE 5%-WATER 250 ML IV NR (16:00)
[2017-09-07] MEDS ORDERED: CEFEPIME 2 GM/D5W RTU 2 GM/50 ML RTUPB IV SCH (16:00)
[2017-09-07 16:38] LABS: ARTERIAL BLOOD BASE EXCESS 5.8 mmol/L; ARTERIAL BLOOD H2CO3 1.21 mmol/L (1.05-1.35); ARTERIAL BLOOD HCO3 29.7 mmol/L (20-26); ARTERIAL BLOOD O2 SATURATION 90.2 % (94-98); ARTERIAL BLOOD PCO2 40.2 mmHg (35-45); ARTERIAL BLOOD PH 7.49 (7.35-7.45); ARTERIAL BLOOD PO2 53.8 mmHg (80-100); ARTERIAL BLOOD TOTAL CO2 30.9 mmol/L (21-25)
[2017-09-07] MEDS ORDERED: VANCOMYCIN HCL 1,000 MG in DEXTROSE 5%-WATER 250 ML IV ONE (17:00)
--- NOTE | 2017-09-07 17:20 | PDOC PROGRESS REPORT ---
Subjective Progress Note for:: 09/07/17 Subjective:: Patient is more dyspneic today and pulse oximetry dropped to 85% on 5 L/min nasal cannula Patient underwent CTA of the chest which showed emphysematous changes and atelectasis and/or pneumonia in the lower lobes Reason For Visit: ACUTE ON CHRONIC RESPIRATORY FAILURE,AECOPD Physical Exam Vital Signs: Temp Pulse Resp BP Pulse Ox 98.6 F 95 16 118/67 91 L 09/07/17 12:17 09/07/17 14:29 09/07/17 14:29 09/07/17 12:17 09/07/17 12:17 Intake & Output 09/06/17 09/07/17 09/08/17 00:59 00:59 00:59 Intake Total 435 292 500 Output Total 0 Balance 435 292 500 Weight 91.3 kg 91.8 kg General appearance: PRESENT: mild distress, well-developed, well-nourished Head exam: PRESENT: atraumatic, normocephalic Eye exam: PRESENT: conjunctiva pink, EOMI, PERRLA. ABSENT: scleral icterus Ear exam: PRESENT: normal external ear exam Mouth exam: PRESENT: moist, tongue midline Neck exam: ABSENT: carotid bruit, JVD, lymphadenopathy, thyromegaly Respiratory exam: PRESENT: decreased breath sounds, wheezes. ABSENT: rales, rhonchi Cardiovascular exam: PRESENT: RRR, tachycardia. ABSENT: diastolic murmur, rubs , systolic murmur Pulses: PRESENT: normal dorsalis pedis pul Vascular exam: PRESENT: normal capillary refill GI/Abdominal exam: PRESENT: normal bowel sounds, soft. ABSENT: distended, guarding, mass, organolmegaly, rebound, tenderness Rectal exam: PRESENT: deferred Extremities exam: PRESENT: full ROM. ABSENT: calf tenderness, clubbing, pedal edema Neurological exam: PRESENT: alert, awake, oriented to person, oriented to place , oriented to time, oriented to situation, CN II-XII grossly intact. ABSENT: motor sensory deficit Psychiatric exam: PRESENT: appropriate affect, normal mood. ABSENT: homicidal ideation, suicidal ideation Skin exam: PRESENT: dry, intact, warm. ABSENT: cyanosis, rash Results Laboratory Results: 09/04/17 04:15 09/04/17 04:15 09/07/17 16:24 Carbonic Acid 1.21 HCO3/H2CO3 Ratio 24:1 ABG pH 7.49 H ABG pCO2 40.2 ABG pO2 53.8 L ABG HCO3 29.7 H ABG O2 Saturation 90.2 L ABG Base Excess 5.8 FiO2 4L 09/03/17 09/03/17 13:22 18:56 Troponin I < 0.012 < 0.012 09/07/17 16:24 ABG pH 7.49 H ABG pCO2 40.2 ABG pO2 53.8 L ABG HCO3 29.7 H Impressions: Chest X-Ray 09/03/17 08:51 IMPRESSION: NO ACUTE RADIOGRAPHIC FINDING IN THE CHEST. Chest/Abdomen CTA 09/07/17 10:17 IMPRESSION: 1. No PE. 2. COPD. Atelectasis or developing pneumonia in the lower lobes. Assessment & Plan - Diagnosis (1) Acute and chronic respiratory failure Qualifiers: Respiratory failure complication: hypoxia and hypercapnia Is this a current diagnosis for this admission?: No Plan: Hypoxemia somehow worsened Patient wishes to go home There is a possibility that she is developing hospital acquired pneumonia with bilateral lower lobe infiltrates we will initiate Cefepime and vancomycin Increase O2 supplementation Postpone discharge (2) COPD exacerbation Is this a current diagnosis for this admission?: Yes (3) Chronic pain syndrome Is this a current diagnosis for this admission?: Yes (4) Diabetes Qualifiers: Diabetes mellitus type: type 2 Diabetes mellitus complication status: with unspecified complications Diabetes mellitus correction insulin use: without correction use Qualified Code(s): E11.8 - Type 2 diabetes mellitus with unspecified complications Is this a current diagnosis for this admission?: Yes (5) HTN (hypertension) Qualifiers: Hypertension type: essential hypertension Qualified Code(s): I10 - Essential (primary) hypertension Is this a current diagnosis for this admission?: Yes (6) Opioid dependence in controlled environment Is this a current diagnosis for this admission?: Yes (7) Tobacco abuse Is this a current diagnosis for this admission?: Yes - Time Time Spent with patient: 25-34 minutes
[2017-09-07] MEDS: CEFEPIME HCL 2 GM in DEXTROSE 5%-WATER 50 ML IV SCH (18:05)
[2017-09-07 19:13] LABS: ARTERIAL BLOOD FIO2 6L
[2017-09-07] MEDS: ATORVASTATIN CALCIUM 20 MG TABLET PO SCH (22:29)
[2017-09-07] MEDS: VANCOMYCIN HCL 1,000 MG in DEXTROSE 5%-WATER 250 ML IV SCH (22:56)
[2017-09-07] MEDS: INSULIN LISPRO 100 UNIT/ML 3 ML VIAL SUBCUT PRN (23:18)
[2017-09-08] MEDS: ACETYLCYSTEINE 10% NEB 400 MG/4 ML VIAL NEB SCH ×3 (01:46→13:07)
[2017-09-08] MEDS: ALBUTEROL SULFATE 0.083% NEB 2.5 MG/3 ML AMPUL NEB PRN ×2 (01:46→13:07)
[2017-09-08] MEDS: LANSOPRAZOLE 30 MG TAB.RAP.DR PO SCH (05:16)
[2017-09-08] MEDS: CEFEPIME HCL 2 GM in DEXTROSE 5%-WATER 50 ML IV SCH (05:17)
[2017-09-08] MEDS: METHYLPREDNISOLONE INJ 125 MG/2 ML SDV IV SCH (05:17)
[2017-09-08] MEDS: VANCOMYCIN HCL 1,000 MG in DEXTROSE 5%-WATER 250 ML IV SCH (05:55)
[2017-09-08] MEDS: IPRATROPIUM/ALBUTEROL 0.5-2.5 MG/3 ML AMPUL NEB SCH (07:50)
[2017-09-08] MEDS: BUDESONIDE NEB 0.5 MG/2 ML AMPUL NEB SCH (07:50)
[2017-09-08] MEDS: ASPIRIN 81 MG TABLET, ENT COATED PO SCH (09:33)
[2017-09-08] MEDS: LOSARTAN POTASSIUM 50 MG TABLET PO SCH (09:33)
[2017-09-08] MEDS: TOLTERODINE TARTRATE 1 MG TABLET PO SCH (09:33)
[2017-09-08] MEDS: ENOXAPARIN SODIUM INJ 40 MG/0.4 ML DISP.SYRIN SUBCUT SCH (09:33)
[2017-09-08] MEDS: VERAPAMIL HCL 240 MG TABLET.SA PO SCH (09:33)
[2017-09-08] MEDS: DULOXETINE HCL 30 MG CAPSULE.DR PO SCH (09:33)
[2017-09-08] MEDS: FUROSEMIDE 40 MG TABLET PO SCH (09:33)
[2017-09-08] MEDS: DOCUSATE SODIUM 100 MG CAPSULE PO SCH (09:33)
[2017-09-08] MEDS: MULTIVITAMIN TABLET PO SCH (09:34)
[2017-09-08] MEDS: GUAIFENESIN 600 MG TABLET.SA PO SCH (09:34)
--- NOTE | 2017-09-08 10:11 | PDOC DISCHARGE SUMMARY ---
General - Admit/Disc Date/PCP Admission Date/Primary Care Provider: 09/03/17 12:54 SHABBIR VILLALBA MD Discharge Date: 09/08/17 - Discharge Diagnosis (1) Acute and chronic respiratory failure Is this a current diagnosis for this admission?: No (2) COPD exacerbation Is this a current diagnosis for this admission?: Yes (3) Chronic pain syndrome Is this a current diagnosis for this admission?: Yes (4) Diabetes Is this a current diagnosis for this admission?: Yes (5) HTN (hypertension) Is this a current diagnosis for this admission?: Yes (6) Opioid dependence in controlled environment Is this a current diagnosis for this admission?: Yes (7) Tobacco abuse Is this a current diagnosis for this admission?: Yes - Additional Information Discharge Diet: Cardiac, Diabetic Discharge Activity: Activity As Tolerated Prescriptions: Albuterol Sulfate [Albuterol Sulfate 2.5mg/3 mL] 2.5 mg IH Q4H PRN 30 Days #30 unit PRN Reason: Budesonide [Pulmicort Neb 0.5 mg/2 ml Ampul] 0.5 mg NEB RTQ12 30 Days #60 ampul.neb Cefpodoxime Proxetil [Vantin 200 mg Tablet] 1 tab PO Q12 #20 tab Doxycycline Hyclate 100 mg PO BID #20 capsule Guaifenesin [Mucinex Sr 600 mg Tablet.sa] 1,200 mg PO Q12 15 Days #30 tablet.sa Ipratropium/Albuterol Sulfate [Duoneb 3 ml Ampul] 3 ml NEB UOY0ELD 30 Days #30 vial.neb Prednisone 20 mg PO ASDIR PRN 15 Days #30 tablet PRN Reason: Tiotropium Sabine [Spiriva Handihaler 18 mcg/dose (30 Dose)] 1 cap IH DAILY # 30 capsule Home Medications: Albuterol Sulfate [Ventolin HFA MDI 18 GM] 2 puff IH Q4HP PRN 09/03/17 Alendronate Sodium [Fosamax 70 mg Tablet] 70 mg PO PINEDA@1000 09/03/17 Aspirin [Aspirin EC] 81 mg PO DAILY 09/03/17 Celecoxib [Celebrex 200 mg Capsule] 200 mg PO DAILY 09/03/17 Duloxetine HCl [Cymbalta] 30 mg PO DAILY 09/03/17 Esomeprazole Mag Trihydrate [Nexium] 40 mg PO DAILY 09/03/17 Furosemide [Lasix 40 mg Tablet] 40 mg PO QAM 09/03/17 Hydrocodone/Acetaminophen [Hydrocodon-Acetaminophen 5-325] 1 tab PO Q8HP PRN Krill/Om-3/Dha/Epa/Phospho/Ast [[place]-3 Krill Oil Sfgl] 1 cap PO DAILY 09/03/17 Losartan Potassium [Cozaar 100 mg Tablet] 100 mg PO DAILY 09/03/17 Multivit-Min/Iron/Folic/Lutein [Centrum Silver Women Tablet] 1 tab PO DAILY Rosuvastatin Calcium [Crestor 10 mg Tablet] 10 mg PO QHS 09/03/17 Sitagliptin Phosphate [Januvia] 100 mg PO DAILY 09/03/17 Tolterodine Tartrate [Detrol LA] 4 mg PO DAILY 09/03/17 Verapamil HCl [Verapamil ER] 240 mg PO DAILY 09/03/17 Albuterol Sulfate [Albuterol Sulfate 2.5mg/3 mL] 2.5 mg IH Q4H PRN 30 Days #30 unit 09/08/17 Budesonide [Pulmicort Neb 0.5 mg/2 ml Ampul] 0.5 mg NEB RTQ12 30 Days #60 ampul.neb 09/08/17 Cefpodoxime Proxetil [Vantin 200 mg Tablet] 1 tab PO Q12 #20 tab 09/08/17 Doxycycline Hyclate 100 mg PO BID #20 capsule 09/08/17 Guaifenesin [Mucinex Sr 600 mg Tablet.sa] 1,200 mg PO Q12 15 Days #30 tablet.sa 09/08/17 Ipratropium/Albuterol Sulfate [Duoneb 3 ml Ampul] 3 ml NEB [id number] 30 Days #30 vial.neb 09/08/17 Prednisone 20 mg PO ASDIR PRN 15 Days #30 tablet 09/08/17 Tiotropium Sabine [Spiriva Handihaler 18 mcg/dose (30 Dose)] 1 cap IH DAILY # 30 capsule 09/08/17 History of Present Illness Patient complains of: SHORTNESS OF BREATH -HYPOXEMIA History of Present Illness: AFSHIN MCCURDY is a 67 year old female presents accompanied by multiple family members and states that she has been getting progressively short of breath over the span of 5 days. Patient has been having cough which is nonproductive. Patient also complains of having some chills. Shortness of breath was so severe that she had to call EMS. Upon arrival of EMS pulse ox was 73%. On arrival patient was still hypoxemic and required placement on BiPAP. She was medicated with IV Solu-Medrol and DuoNeb. Patient continues smoking 1 pack of cigarettes per day. Her father of lung cancer. In addition to her smoking there are some other family members that smoke as well.By the time of examining patient she reported that she was some better but was somewhat afraid of using the BiPAP. Our service was contacted by ED physician and prompted to admit for further management Hospital Course Hospital Course: (1) Acute and chronic respiratory failure Qualifiers: Respiratory failure complication: hypoxia and hypercapnia Is this a current diagnosis for this admission?: No Plan: With severe hypoxemia patient is oxygenating only 85% on room air Severe hypoxemia likely secondary to pneumonia and chronic COPD Patient did not have any evidence of pulmonary embolism on CTA Patient was discharged on a nasal cannula with Oxymizer at 5 L/min (2) COPD exacerbation Is this a current diagnosis for this admission?: Yes As above (3) Chronic pain syndrome Is this a current diagnosis for this admission?: Yes continue pain management (4) Diabetes Qualifiers: Diabetes mellitus type: type 2 Diabetes mellitus complication status: with unspecified complications Diabetes mellitus terminal system operator insulin use: without retirement use Qualified Code(s): E11.8 - Type 2 diabetes mellitus with unspecified complications Is this a current diagnosis for this admission?: Yes (5) HTN (hypertension) Qualifiers: Hypertension type: essential hypertension Qualified Code(s): I10 - Essential (primary) hypertension Is this a current diagnosis for this admission?: Yes medications were continued Patient's blood pressure stable at discharge (6) Opioid dependence in controlled environment Is this a current diagnosis for this admission?: Yes (7) Tobacco abuse Is this a current diagnosis for this admission?: Yes strongly advised Tobacco cessation (8) Pneumonia Chest x-ray 09/07 suggestive of bilateral lower lobe infiltrates Patient was discharged on Vantin and doxycycline Physical Exam Vital Signs: Temp Pulse Resp BP Pulse Ox 97.6 F 88 16 141/73 H 89 L 09/08/17 07:45 09/08/17 07:50 09/08/17 09:10 09/08/17 07:45 09/08/17 09:10 Intake & Output 09/07/17 09/08/17 09/09/17 00:59 00:59 00:59 Intake Total 292 1500 732 Balance 292 1500 732 Weight 91.8 kg 92.3 kg General appearance: PRESENT: no acute distress Head exam: PRESENT: atraumatic, normocephalic Eye exam: PRESENT: conjunctiva pink, EOMI, PERRLA. ABSENT: scleral icterus Neck exam: ABSENT: carotid bruit, JVD, lymphadenopathy, thyromegaly Respiratory exam: PRESENT: decreased breath sounds, wheezes. ABSENT: accessory muscle use, retraction, rhonchi Cardiovascular exam: PRESENT: RRR. ABSENT: diastolic murmur, rubs, systolic murmur GI/Abdominal exam: PRESENT: normal bowel sounds, soft. ABSENT: distended, guarding, mass, organolmegaly, rebound, tenderness Extremities exam: PRESENT: full ROM. ABSENT: calf tenderness, clubbing, pedal edema Neurological exam: PRESENT: alert, awake, oriented to person, oriented to place , oriented to time, oriented to situation, CN II-XII grossly intact. ABSENT: motor sensory deficit Results Laboratory Results: 09/04/17 04:15 09/04/17 04:15 09/07/17 16:24 Carbonic Acid 1.21 HCO3/H2CO3 Ratio 24:1 ABG pH 7.49 H ABG pCO2 40.2 ABG pO2 53.8 L ABG HCO3 29.7 H ABG O2 Saturation 90.2 L ABG Base Excess 5.8 FiO2 6L 09/03/17 09/03/17 13:22 18:56 Troponin I < 0.012 < 0.012 Impressions: Chest X-Ray 09/03/17 08:51 IMPRESSION: NO ACUTE RADIOGRAPHIC FINDING IN THE CHEST. Chest/Abdomen CTA 09/07/17 10:17 IMPRESSION: 1. No PE. 2. COPD. Atelectasis or developing pneumonia in the lower lobes. Plan Discharge Plan: Discharge home on oxygen Follow-up with PMD in a week Follow-up with Dr. Zarina lara in 2-3 weeks Time Spent: Greater than 30 Minutes
[2017-09-08 12:48] VITALS: BP 135/73
== END 2017-09-08 13:40 | disposition home or self-care (01) | DRG 189 ==
LOC: ER 08:42 → EH 12:54 → 3N 22:40
PROVIDERS: ADMIT Emergency Medicine; ATTEND Emergency Medicine
DX: J96.21 Acute and chronic respiratory failure with hypoxia (principal); J44.1 Chronic obstructive pulmonary disease with (acute) exacerbation; E87.2 Acidosis; F17.210 Nicotine dependence, cigarettes, uncomplicated; J96.22 Acute and chronic respiratory failure with hypercapnia; I10 Essential (primary) hypertension; E11.9 Type 2 diabetes mellitus without complications; K21.9 Gastro-esophageal reflux disease without esophagitis; M19.90 Unspecified osteoarthritis, unspecified site; M79.7 Fibromyalgia; G89.4 Chronic pain syndrome; Z80.1 Family history of malignant neoplasm of trachea, bronchus and lung; Z82.49 Family history of ischemic heart disease and other diseases of the circulatory system; Z79.82 Long term (current) use of aspirin; Z79.899 Other long term (current) drug therapy; Z79.51 Long term (current) use of inhaled steroids; Z79.891 Long term (current) use of opiate analgesic
CPT/HCPCS: 36415; 36600; 71045; 71275; 80048; 80053; 82550; 82803; 82962; 83605; 83735; 83880; 84484; 85025; 87804; 93005; 93010; 94640; 94660; 96365; 99285; G8978-GP; G8979-GP; J0692; J1650; J1815; J2920; J2930; J3370; J3475; J3490; J7060; J7620